=== PATIENT | female | born 1990 | race Caucasian/White ===

== ENCOUNTER 2017-03-11 09:29 | Outpatient (CLI) | payer BC ==
[~2017-03-11] VITALS: Ht 165.1 cm; Wt 79.5 kg
[2017-03-11 09:36] VITALS: BP 130/69
[2017-03-11 10:24] LABS: AMNI LOT 554010215
[2017-03-11 10:45] LABS: AMNI OBC PASS; AMNISURE NEGATIVE (NEGATIVE)
== END 2017-03-11 10:10 | disposition home or self-care (01) ==
LOC: LDOP 09:29
PROVIDERS: ATTEND Obstetrics & Gynecology
DX: O42.913 Preterm premature rupture of membranes, unspecified as to length of time between rupture and onset of labor, third trimester (principal); Z3A.34 34 weeks gestation of pregnancy
CPT/HCPCS: 59025; 84112; 99211; G0463